=== PATIENT | female | born 1985 | race Two or more races ===

== ENCOUNTER 2016-09-10 15:35 | Emergency (ER) | payer OTHER, MEDICAID | END 2016-09-10 17:09 | disposition home or self-care (01) | LOC: ED 15:35 | DX: M79.601 Pain in right arm (principal); F32.9 Major depressive disorder, single episode, unspecified; V49.50XA Passenger injured in collision with unspecified motor vehicles in traffic accident, initial encounter; Y92.410 Unspecified street and highway as the place of occurrence of the external cause ==